=== PATIENT | female | born 1990 | race Caucasian/White ===

== ENCOUNTER 2016-08-03 13:48 | Emergency (ER) | payer OTHER ==
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
[2016-08-03] MEDS ORDERED: TOPICAL SKIN ADHESIVE 1 EACH AMP TOPICAL ONE (14:29)
[2016-08-03] MEDS ORDERED: DIPH,PERTUS(ACELL)TETVAC-LF 0.5 ML VIAL IM ONE (14:46)
--- NOTE | 2016-08-03 14:51 | XR ---
EXAMINATION TYPE: XR hand complete bilateral DATE OF EXAM ORDERED: 08/03/2016 2:40 PM HISTORY: Pain. COMPARISON: None. FINDINGS: Bone mineral density is maintained. Bony alignment is maintained. The joint spaces are wel l maintained. There is no chondrocalcinosis. No erosive changes are noted. IMPRESSION: NORMAL BILATERAL HANDS.
--- NOTE | 2016-08-03 14:51 | XR ---
Bilateral wrists HISTORY: Pain, trauma 4 views of each wrist are submitted on a total of 8 images. Bone mineralization, joint spaces and alignment are maintained. Small metallic density is present at the dorsum of the radial aspect of the wrist at the level of the scaphoid measuring approximately 3 m m compatible with foreign body, some flake-like punctate foci also present superimposed to the dorsal aspect of the metacarpals compatible with foreign bodies. IMPRESSION: Soft tissue foreign bodies. No fracture or dislocation is evident.
[2016-08-03 15:47] VITALS: BP 116/72; PULSE 78; RESP 18; TEMP 98.2
== END 2016-08-03 15:46 | disposition home or self-care (01) ==
LOC: SUPCPDRO 13:48 → EC 13:48
DX: S60.512A Abrasion of left hand, initial encounter (principal); S60.511A Abrasion of right hand, initial encounter; S61.412A Laceration without foreign body of left hand, initial encounter; V28.4XXA Motorcycle driver injured in noncollision transport accident in traffic accident, initial encounter; Z23 Encounter for immunization
CPT/HCPCS: 12001; 90471; 90715; 99283

== ENCOUNTER → 2017-11-23 | Outpatient (CLI) | payer OTHER ==
--- NOTE | 2017-11-23 08:54 | US ---
EXAMINATION TYPE: US abdomen complete DATE OF EXAM: 11/23/2017 COMPARISON: NONE CLINICAL HISTORY: R10.11 Right upper quadrant pain,R94.1 Dyspareunia. rt sided pain x few wks EXAM MEASUREMENTS: Liver Length: 16.8cm cm Gallbladder Wall: 0.2cm cm CBD: 0.4cm cm Spleen: 12.1cm cm Right Kidney: 10.1 x 3.8 x 4.4 cm Left Kidney: 10.8 x 4.5 x 5.5 cm Pancreas: wnl Liver: wnl Gallbladder: wnl Evidence for sonographic Joyner's sign: no CBD: wnl Spleen: wnl Right Kidney: wnl Left Kidney: wnl Upper IVC: wnl Abd Aorta: wnl The liver is homogenous. The intrahepatic portion of the IVC and proximal abdominal aorta are within normal limits. There is no evidence of cholelithiasis. Common bile duct is unremarkable. The visu alized portions of the pancreas are homogenous. The spleen is unremarkable. Kidneys are symmetric a nd free of hydronephrosis. No renal lesions are seen. IMPRESSION: No sonographic evidence of cholelithiasis or acute cholecystitis. In this patient with ri ght upper quadrant scan further evaluation with HIDA scan with CCK could be performed to evaluate for chronic cholecystitis or biliary dyskinesia.
--- NOTE | 2017-11-23 10:06 | US ---
EXAMINATION TYPE: US pelvic complete DATE OF EXAM: 11/23/2017 COMPARISON: NONE CLINICAL HISTORY: R10.11 Right upper quadrant pain,R94.1 Dyspareunia. Dyspareunia, pt has had IUD in place since 2014 TECHNIQUE: Transabdominal (TA) Date of LMP: 2014 EXAM MEASUREMENTS: Uterus: 9.8 x 3.5 x 4.8 cm Endometrial Stripe: 0.6 cm Right Ovary: 3.7 x 2.4 x 3.0 cm Left Ovary: 3.8 x 2.3 x 4.0 cm 1. Uterus: Anteverted wnl, IUD appears in correct location 2. Endometrium: wnl 3. Right Ovary: wnl 4. Left Ovary: wnl 5. Bilateral Adnexa: wnl 6. Posterior cul-de-sac: wnl No abnormality visualized to account for pt's symptoms IMPRESSION: Centrally placed intrauterine device within the endometrium. Otherwise unremarkable exami [facility].
== END | disposition home or self-care (01) ==
LOC: RADUSWWP 08:22
PROVIDERS: ATTEND Family Medicine
DX: R10.11 Right upper quadrant pain (principal); N94.10 Unspecified dyspareunia; Z97.5 Presence of (intrauterine) contraceptive device
CPT/HCPCS: 76700; 76856